=== PATIENT | female | born 1985 | race Caucasian/White ===

== ENCOUNTER → 2017-02-24 | Outpatient (CLI) | payer OTHER | LOC: FIMAGING 13:40 | PROVIDERS: ATTEND Advanced Practice Midwife | DX: O26.851 Spotting complicating pregnancy, first trimester (principal); Z3A.08 8 weeks gestation of pregnancy ==

== ENCOUNTER → 2017-10-13 | Outpatient (CLI) | payer OTHER | LOC: BMCIMAGING 08:42 | PROVIDERS: ATTEND Emergency Medicine | DX: M79.675 Pain in left toe(s) (principal) ==

== ENCOUNTER → 2018-01-06 | Outpatient (CLI) | payer OTHER | LOC: FIMAGING 12:02 | PROVIDERS: ATTEND Advanced Practice Midwife | DX: Z34.82 Encounter for supervision of other normal pregnancy, second trimester (principal); Z3A.20 20 weeks gestation of pregnancy ==

== ENCOUNTER 2018-03-16 18:57 | Observation (INO) | payer OTHER ==
--- NOTE | 2018-03-16 19:14 | EDPHY ---
H & P Stated Complaint: says sudden onset of dizziness/inability to focus since 1500 today Source: Patient, Family (), Old records Exam Limitations: No limitations - Personal History LMP (Females 10-55): - Medical/Surgical History Hx Asthma: No Hx Chronic Respiratory Disease: No Hx Diabetes: No Hx Cardiac Disease: No Hx Renal Disease: No Hx Cirrhosis: No Hx Alcoholism: No Hx HIV/AIDS: No Hx Splenectomy or Spleen Trauma: No Other PMH: none - Social History Smoking Status: Never smoked Time Seen by Provider: 03/16/18 19:14 HPI/ROS: HPI: This is a 33-year-old female who presents with Chief Complaint: says sudden onset of dizziness/inability to focus since 1500 today Location:head Quality: dizziness Duration: since 1500-4 hours Signs and Symptoms: no fever, no nausea, no vomiting, no photophobia, no noise sensitivity, no neck stiffness, no ear pain, no tinnitus, no nasal congestion, no sinus pressure, no weakness, no radiation, no aura Timing: Acute, "comes in waves" Severity: [id number] Context: Patient is a , currently 30 weeks , followed by [facility], presents with sudden onset around 1500 approximately 4 hr ago of dizziness described as the room spinning while on a [employer] conference. Patient reports that the room spinning comes in waves. She had a similar episode that occurred approximately 2 years ago. She denies fever, vision changes, vomiting, staggering or ataxic gait, headache, double vision, visual loss, slurred speech, numbness of the face or body, weakness, clumsiness , incoordination. She lie down on her left side for approximately 45 min with mild improvement in her symptoms. She then called her environmental technology professor who directed her to come to the emergency room for further evaluation. at bedside has a cold for the last 2 days. Patient denies any upper respiratory symptoms at this time. Per chart review, blood type is O-positive. Modifying Factors: None Comment: ROS: A comprehensive 10 system review of systems is otherwise negative aside from elements mentioned in the history of present illness. MEDICAL/SURGICAL/SOCIAL HISTORY: Medical history: Generally healthy. Currently taking iron and vitamin. Surgical history: Denies Social history: and employed. Nonsmoker. Family history noncontributory. CONSTITUTIONAL: Pleasant and cooperative, nontoxic-appearing, adult white female, awake and alert, no obvious distress HEENT: Atraumatic and normocephalic, PERRL, EOMI. Nares patent; no rhinorrhea; no nasal mucosal edema. Tympanic membranes clear. Oropharynx clear, no exudate and moist pink mucosa. Airway patent. No lymphadenopathy. No meningismus. Cardiovascular: Normal S1/S2, regular rate, regular rhythm, without murmur rub or gallop. PULMONARY/CHEST: Symmetrical and nontender. Clear to auscultation bilaterally. Good air movement. No accessory muscle usage. ABDOMEN: Soft, gravid, nontender, no rebound, no guarding, no peritoneal signs , no masses or organomegaly. No CVAT. EXTREMITIES: 2/2 pulses, strength 5/5, no deformities, no clubbing, no cyanosis or edema. NEUROLOGICAL: no focal neuro deficits. GCS 15. Bilateral nystagmus noted with Leny-Hallpike maneuver. Cranial nerves 2-12 grossly intact. SKIN: Warm and dry, no erythema. no rash. Good capillary refill. (Jo Landeros) Constitutional: Initial Vital Signs Temperature (C) 36.4 C 03/16/18 19:01 Heart Rate 80 03/16/18 19:01 Respiratory Rate 16 03/16/18 19:01 Blood Pressure 126/69 H 03/16/18 19:01 O2 Sat (%) 99 03/16/18 19:01 O2 Delivery Mode Room Air Allergies/Adverse Reactions: black pepper Allergy (Verified 03/16/18 19:05) gluten Allergy (Verified 03/16/18 19:05) walnut Allergy (Verified 03/16/18 19:05) Home Medications: Medication Instructions Recorded Iron 03/16/18 Meclizine HCl [Meclizine HCl 25 mg 25 mg PO Q6 PRN #6 tab 03/16/18 (RX,OTC)] Nitrofurantoin Macrobid [Macrobid] 100 mg PO BID #14 cap 03/16/18 Hubbell-3 03/16/18 03/16/18 Medical Decision Making ED Course/Re-evaluation: The patient was evaluated and managed by the physician's assistant grocery store manager. My cosignature indicates that I reviewed the chart and I agree with the findings and plan of care as documented. I am the secondary supervising physician. ( Maye Richmond) Vital signs reviewed and stable upon arrival. No hypertension. Placed on cardiac catheterization technician. IV access and laboratory studies ordered along with urinalysis. heart tones assessed at bedside by RN and strong 150s Abdomen soft and nontender with no vaginal bleeding; no indication for OB ultrasound at this time. Patient has nystagmus with Leny-Hallpike maneuver consistent with BPPV; meclizine class B and 12.5 mg given along with 1 L normal saline 2002: Potassium 3.5, creatinine 0.5. Urinalysis shows 1+ LE, no ketones, 2+ bacteria, 5-10 WBCs, sent for urine culture, will give Macrobid 2051: Reassessed patient who is ambulating in the [place] with minimal dizziness. Ambulatory without ataxia. ED decision to consult OBGYN, Dr. Burk, who reviewed her chart and agrees with Meclizine and Macrobid prescriptions. Patient will be sent up to Labor and delivery for Non-Stress testing. This patient was seen under the supervision of my secondary supervising physician. I evaluated care for this patient independently. Discussed this patient with Dr. Richmond who did not see the patient. (Jo Landeros) Differential Diagnosis: Dizziness including but not limited to peripheral and central causes of vertigo , orthostatic causes including dehydration, and blood loss. (Jo Landeros) - Data Points Laboratory Results: Laboratory Results 03/16/18 19:20 03/16/18 19:20 03/16/18 03/16/18 03/16/18 19:35 19:20 19:20 WBC 9.75 10^3/uL H 10^3/uL (3.80-9.50) RBC 3.85 10^6/uL L 10^6/uL (4.18-5.33) Hgb 11.6 g/dL L g/dL (12.6-16.3) Hct 35.2 % L % (38.0-47.0) MCV 91.4 fL fL (81.5-99.8) MCH 30.1 pg pg (27.9-34.1) MCHC 33.0 g/dL g/dL (32.4-36.7) RDW 13.0 % % (11.5-15.2) Plt Count 240 10^3/uL 10^3/uL (150-400) MPV 10.0 fL fL (8.7-11.7) Neut % (Auto) 71.6 % % (39.3-74.2) Lymph % (Auto) 19.5 % % (15.0-45.0) [place] % (Auto) 5.6 % % (4.5-13.0) Eos % (Auto) 2.1 % % (0.6-7.6) Baso % (Auto) 0.4 % % (0.3-1.7) Nucleat RBC Rel Count 0.0 % % (0.0-0.2) Absolute Neuts (auto) 6.98 10^3/uL H 10^3/uL (1.70-6.50) Absolute Lymphs (auto) 1.90 10^3/uL 10^3/uL (1.00-3.00) Absolute Monos (auto) 0.55 10^3/uL 10^3/uL (0.30-0.80) Absolute Eos (auto) 0.20 10^3/uL 10^3/uL (0.03-0.40) Absolute Basos (auto) 0.04 10^3/uL 10^3/uL (0.02-0.10) Absolute Nucleated RBC 0.00 10^3/uL 10^3/uL (0-0.01) Immature Gran % 0.8 % % (0.0-1.1) Immature Gran # 0.08 10^3/uL 10^3/uL (0.00-0.10) Sodium 136 mEq/L mEq/L (135-145) Potassium 3.5 mEq/L mEq/L (3.3-5.0) Chloride 103 mEq/L mEq/L (97-110) Carbon Dioxide 27 mEq/l mEq/l (22-31) Anion Gap 6 mEq/L mEq/L (6-14) BUN 9 mg/dL mg/dL (7-23) Creatinine 0.5 mg/dL L mg/dL (0.6-1.0) Estimated GFR > 60 Glucose 98 mg/dL mg/dL (70-100) Calcium 9.3 mg/dL mg/dL (8.5-10.4) Urine Color PALE YELLOW Urine Appearance HAZY Urine pH 7.0 (5.0-7.5) Ur Specific [place] 1.008 (1.002-1.030) Urine Protein NEGATIVE (NEGATIVE) Urine Ketones NEGATIVE (NEGATIVE) Urine Blood NEGATIVE (NEGATIVE) Urine Nitrate NEGATIVE (NEGATIVE) Urine Bilirubin NEGATIVE (NEGATIVE) Urine Urobilinogen NEGATIVE EU EU (0.2-1.0) Ur Leukocyte Esterase 1+ H (NEGATIVE) Urine RBC 1-3 /hpf /hpf (0-3) Urine WBC 5-10 /hpf H /hpf (0-3) Ur Epithelial Cells 1+ /lpf /lpf (NONE-1+) Amorphous Sediment PRESENT /hpf /hpf (NONE-1+) Urine Bacteria 2+ /hpf H /hpf (NONE SEEN) Urine Mucus TRACE /lpf /lpf (NONE-1+) Urine Glucose NEGATIVE (NEGATIVE) Medications Given: Discontinued Medications Sodium Chloride (Ns) 1,000 mls @ 0 mls/hr IV ONCE ONE; Wide Open PRN Reason: Protocol Stop: 03/16/18 19:24 Last Admin: 03/16/18 19:33 Dose: 1,000 mls Meclizine HCl (Meclizine Hcl) 12.5 mg PO EDNOW ONE Stop: 03/16/18 19:27 Last Admin: 03/16/18 19:39 Dose: 12.5 mg Nitrofurantoin Macrocrystals (Macrobid) 100 mg PO EDNOW ONE PRN Reason: Protocol Stop: 03/16/18 20:49 Last Admin: 03/16/18 20:55 Dose: 100 mg Departure - Departure Disposition: Home, Routine, Self-Care Clinical Impression: Dizziness, Third trimester at less than 36 weeks UTI in Qualifiers: Trimester: third trimester Qualified Code(s): O23.43 - Unspecified infection of urinary tract in , third trimester Condition: Good Instructions: Meclizine (By mouth), Nitrofurantoin Combination (By mouth), Vertigo (ED), Urinary Tract Infection in (ED) Additional Instructions: Consume a minimum of 8-10 glasses of water or electrolyte fluid replacement drinks that include Gatorade, Powerade, Pedialyte. Take meclizine every 6 hr as needed for dizziness, vertigo. Take Macrobid twice a day x7 days for urinary tract infection. Keep follow-up appointment with environmental technology professor. Referrals: PCP Not In,Dictionary [Medical Doctor] - As per Instructions (Vladimir Dickinson) Prescriptions: Meclizine HCl [Meclizine HCl 25 mg (RX,OTC)] 25 mg PO Q6 PRN #6 tab PRN Reason: Dizziness Nitrofurantoin Macrobid [Macrobid] 100 mg PO BID #14 cap
[2018-03-16] MEDS ORDERED: NS 1,000 ML IV ONE (19:23)
[2018-03-16] MEDS ORDERED: MECLIZINE HCL 25 MG TAB PO ONE (19:26)
[2018-03-16 19:33] LABS: PLATELET COUNT 240 10^3/uL (150-400)
[2018-03-16] MEDS ORDERED: NITROFURANTOIN MACROBID 100 MG CAP PO ONE (20:48)
[2018-03-16 21:03] VITALS: BP 120/67
--- NOTE | 2018-03-16 21:48 | OBPROG ---
Labor Progress Note Assessment/Plan: Assessment: 33 y/o @ 30 weeks with episode of vertigo Plan: status reassuring. D/c home with Rx Meclizine and Macrobid. Follow-up with [facility] as needed. 03/16/18 21:50 Subjective/Intrapartum Course: 03/16/18 21:43 Pt feels much better after IVH and Meclazine in the ER. She has no Ob complaints. No VB, LOF, and has good FM. She denies dysuria, frequency or urgency. Objective: Temp Pulse Resp BP Pulse Ox 36.4 C 87 16 120/67 94 03/16/18 19:01 03/16/18 21:03 03/16/18 21:03 03/16/18 21:03 03/16/18 21:03 - Contraction Pattern Assessment Current Contraction Pattern: Other (Specify) (none) - FHR Assessment Drake FHR (bpm): 130 FHR Pattern Variability: Moderate FHR Category: 1 - AP Antepartum Course: 03/16/18 21:48 PNC @ [facility] with previous episodes of vertigo No other significant risk factors - Physical Exam General Appearance: WD/WN, alert, no apparent distress Neck: non-tender, full range of motion, supple Respiratory: chest non-tender, lungs clear, normal breath sounds Cardiac/Chest: regular rate, rhythm Abdomen: normal bowel sounds Extremities: swelling (no), Aramis's sign (neg) ICD10 Worksheet Patient Problems: Problems Problem Status Onset Dizziness Acute Third trimester at less than 36 weeks Acute UTI in Acute
== END 2018-03-16 22:31 | disposition home or self-care (01) ==
LOC: FLD 21:08
PROVIDERS: ADMIT Obstetrics & Gynecology; ATTEND Obstetrics & Gynecology
DX: O23.43 Unspecified infection of urinary tract in pregnancy, third trimester (principal); N39.0 Urinary tract infection, site not specified; Z3A.30 30 weeks gestation of pregnancy
CPT/HCPCS: 59025; G0378